=== PATIENT | male | born 1980 | race Caucasian/White ===

== ENCOUNTER 2018-10-08 08:26 | Inpatient (IN) | payer BC ==
[~2018-10-08] VITALS: Ht 175.3 cm; Wt 90.7 kg
[~2018-10-08 08:26] MED LIST: CLINDAMYCIN HC300 MG PO; FLA500 PO; LAC PO; MOTRIN800 MG PO; ZOC10 PO
[2018-10-08 08:35] VITALS: Ht 175.3 cm; Wt 90.7 kg
--- NOTE | 2018-10-08 08:42 | NUR ---
PT PLACED IN BED 15 FOR EVAL
--- NOTE | 2018-10-08 08:50 | NUR ---
RECEIVED PATIENT FROM TRIAGE, PATIENT AMBULATED TO ROOM 15. PATIENT C/O "BLOODY EUN FOR 2 DAYS; PAIN ON MY LEFT SIDE FOR 2 DAYS ALSO." PATIENT IS AAO X 4 (NAME, DATE, TIME AND CONDITION). EYES - PACO. HR - REGULAR. LUNGS CTA. BS PRESENT X 4 QUADRANTS. B/L UPPER AND LOWER EXT PULSES PALPABLE. WILL CONTINUE TO MONITOR//APR RN
--- NOTE | 2018-10-08 09:01 | NUR ---
DR CONNORS AT BEDSIDE FOR EVAL, APR RN AT BEDSIDE AUTOMATION QA ANALYST.//APR RN
[2018-10-08 09:32] LABS: BASOPHIL % 0.2 % (0-2); PLATELET COUNT 179 x10^3mcL (130-400); RED CELL DISTRIBUTION WIDTH 12.7 % (11.5-14.5)
--- NOTE | 2018-10-08 09:44 | NUR ---
PATIENT OUT OF UNIT FOR CT SCAN AT THIS TIME//APR RN
[2018-10-08 09:48] LABS: CARBON DIOXIDE 26.8 mmol/L (21-32); CHLORIDE SERUM 103 mmol/L (98-107); GFR1 > 60 mL/min; GLUCOSE SERUM 116 mg/dL (74-106); POTASSIUM SERUM 3.9 mmol/L (3.5-5.1); SODIUM SERUM 139 mmol/L (136-145)
[2018-10-08 09:52] LABS: ALBUMIN 3.7 g/dL (3.4-5.0); ALKALINE PHOSPHATASE 67 U/L (46-116); ALT/SGPT 50 U/L (16-63); AST/SGOT 26 U/L (15-37); BILIRUBIN TOTAL 0.8 mg/dL (0.20-1.00); LIPASE 191 IU/L (73-393); TOTAL PROTEIN, SERUM 7.8 g/dL (6.4-8.2)
--- NOTE | 2018-10-08 10:30 | NUR ---
PATIENT REQUESTED TO HAVE RIGHT AC HEPLOCK D/C STATES "IT HURTS WHEN I BEND MY ARM." D/C RIGHT AC HEPLOCK; HEPLOCK 22 GAUGE INITIATED ON RIGHT HAND.//JUN RN
--- NOTE | 2018-10-08 12:18 | NUR ---
PATIENT AMBULATED TO RESTROOM AT THIS TIME//APR RN
[2018-10-08 12:43] LABS: microscopic required? YES
[2018-10-08 12:44] LABS: urine erythrocyte NEGATIVE (NEGATIVE)
--- NOTE | 2018-10-08 12:51 | NUR ---
ADVISED PATIENT OF ROOM 220A. REPORT CALLED TO MARY CULLEN FOR ROOM 220A, ENDORSEMENT FOR EILEEN GIVEN. NO QUESTIONS AT THIS TIME. EMT TO TAKE PATIENT TO ROOM 220A.//JUN RN
--- NOTE | 2018-10-08 13:05 | NUR ---
PATIENT ARRIVED FROM ED VIA WHEEL CHAIR ACCOMPANIED BY TOOTH CUTTER CLUTCH. PATIENT AMBULATED TO BED IN ROOM 220A. A/OX4 AT THIS TIME. ORIENTED TO ROOM AND CALL LIGHT SYSTEM. CALL LIGHT WIHTIN REACH. MILD DISCOMFORT TO ABD. NO OTHER COMPLAINTS AT THIS TIME SPOKE WITH DR STAPLES TO GET ADMIT ORDERS FOR PATIENT.
[2018-10-08 13:35] VITALS: BP 112/76
--- NOTE | 2018-10-08 14:59 | NUR ---
ADMINSITERED MEDICATION PER MAR. PATIENT COMPLAINING OF 9/10 PAIN TO ABD. AND SLIGHTLY NAUSEATED. WILL REASSES PAIN. CALL LIGHT WITHIN REAC
--- NOTE | 2018-10-08 16:22 | NUR ---
PATIENT RESTING AT THIS TIME. LEFT SIDE KIMI. EYES CLOSED, BREATHING REGULAR. CALL LIGHT WITHIN REACH ON BED. WILL CONTINUE TO MONITOR
--- NOTE | 2018-10-08 17:32 | NUR ---
SPOKE WITH DR STAPLES. CLARIFIED CONSULT WITH DR CARREON FOR REASON OF RESPIRATORY FAILURE, DR STAPLES INSTRUCTED TO KEEP CONSULT ACITIVE. ALSO TO KEEP PATIENT SALINE LOCKED.
[2018-10-08 17:45] VITALS: BP 104/65
--- NOTE | 2018-10-08 18:03 | NUR ---
ADMINSITERED MEDICATIONS PER MAR. PATIENT HAD NOT COMPLAINTS AT THIS TIME. CALL LIGHT WITHIN REACH, WILL CONTINUE TO MONITOR
--- NOTE | 2018-10-08 18:57 | NUR ---
ADMINSITERED MEDICATION PER MAY. INSTRUCTED PATIENT TO USE HAT IN TOILET TO COLLECT STOOL AND USE CALL LIGHT FOR NURSE TO TAKE SAMPLE. PATIENT STABLE AT THIS TIME. WILL ENDORSE TO NIGHT NURSE
--- NOTE | 2018-10-08 19:30 | NUR ---
RECEIVED PT FROM DAY SHIFT RN. PT AAOX4. DENIES HEADACHE OR DIZZINESS. PT BREATHING EVEN AND UNLABORED ON RA, WITH NO SOB NOTED. MED SURG PT. PT DENIES CHEST PAIN OR PRESSURE. NO EDEMA NOTED. ABD SOFT/ROUND, ACTIVE BOWEL SOUNDS. PT DENIES ABD PAIN/N/V AT THIS TIME. PT AMBULATORY. IV RH, PATENT. NO SIGNS OF INFILTRATION NOTED. CALL BUTTON WITHIN REACH. SAFETY PRECAUTIONS IN PLACE. WILL CONTINUE TO MONITOR.
[2018-10-08 20:08] VITALS: BP 108/62
--- NOTE | 2018-10-08 22:57 | NUR ---
PT REPORTED ABD PAIN 11/27. MEDICATED PER EMAR. CALL BUTTON WITHIN REACH. SAFETY PRECAUTIONS IN PLACE. WILL CONTINUE TO MONITOR.
--- NOTE | 2018-10-09 00:44 | NUR ---
PT AWAKE. DENIES ANY PAIN. BREATHING EVEN AND UNLABORED. NO SIGNS OF DISTRESS. CALL BUTTON WITHINREACH. SAFETY PRECAUTIONS IN PLACE. WILL CONTINUE TO MONITOR.
--- NOTE | 2018-10-09 02:30 | NUR ---
ROUNDS MADE. PT RESTING, BREATHING EVEN AND UNLABORED WITH NO SIGNS OF DISTRESS NOTED. CALL BUTTON WITHIN REACH. SAFETY PRECAUTIONS IN PLACE. WILL CONTINUE TO MONITOR.
--- NOTE | 2018-10-09 05:08 | NUR ---
PT SLEPT ON AND OFF THROUGHOUT THE NIGHT WITH NO SIGNS OF DISTRESS NOTED. BREATHING EVEN AND UNLABORED ON RA. PT REPORTED HAVING ABD PAIN, MEDICATED PER EMAR WITH RELIEF. PT AMBULATORY WITH BRP. PT HAD BOWEL MOVEMENT PER PT IT IS MORE CLEAR. PT IV PATENT. NO SIGNS OF DISTRESS NOTED. CALL BUTTON WITHIN REACH. SAFETY PRECAUTIONS IN PLACE. WILL CONTINUE TO MONITOR AND ENDORSE CARE TO DAY SHIFT RN.
[2018-10-09 06:26] VITALS: BP 113/72
--- NOTE | 2018-10-09 06:56 | NUR ---
PER PT HE HAD ANOTHER BM LIGHT YELLOW IN COLOR.
[2018-10-09 07:15] VITALS: BP 97/51
--- NOTE | 2018-10-09 07:36 | NUR ---
NO SIGNS OF DISTRESS NOTED. ENDORSED CARE TO DAY SHIFT RN, ALL QUESTIONS ADDRESSED.
--- NOTE | 2018-10-09 07:48 | NUR ---
RECEIVED PATIENT FROM MARY CROWELL. PATIENT IN BED, NO COMPLAINTS OF PAIN. GI LAB CALLED AND READY FOR PATIENT FROM COLONOSCOPY. INFORMED PATIENT AND STATES HE IS READY, POST PROCEDURE TEACHING INITIATED AND PATIENT VERBALIZES UNDERSTANDING. PATIENT WITH GI LAB VIA GUERNEY DOWN FOR PROCEDURE.
--- NOTE | 2018-10-09 09:30 | NUR ---
PATIENT RETURNED FROM COLONOSCOPY, DR STAPLES IN TO SPEAK WITH PATIENT ABOUT PLAN OF CARE.
--- NOTE | 2018-10-09 09:51 | NUR ---
PATIENT RETURNED TO FLOOR, NO PAIN AT THIS TIME. DENIES N/V. DR STAPLES IN TO SEE PATIENT ABOUT PLAN OF CARE. PATIENT UNDERSTANDS THAT HE WILL BE SEEN BY INFECTIOUS DISEASE DOCTOR. FAMILY AT BEDSIDE. CALL LIGHT IN REACH.
[2018-10-09 09:59] VITALS: BP 108/72
--- NOTE | 2018-10-09 12:29 | NUR ---
PATIENT IN BED AT THIS TIME, NO COMPLAINTS OF PAIN. CT IN TO TAKE PATIENT FOR CHEST SCAN. WILL AWAIT PATIENT RETURN.
[2018-10-09 16:10] VITALS: BP 110/71
--- NOTE | 2018-10-09 16:30 | NUR ---
PATIENT IN BED WITH MILD COMPLAINTS OF L QUADRANT ABDOMINAL PAIN. PRN TYLENOL PO GIVEN, POSSIBLY DUE TO COLONOSCOPY TODAY. NEW ORDER FOR STOOL WBCs PLACED PER LAB. EXPLAINED TO PATIENT AND PATIENT AGREES. ALSO STOOL CULTURE STILL PENDING AND PATIENT ALSO AWARE. WILL CONTINUE TO MONITOR AND WAIT FOR BM. CALL LIGHT IN REACH AT THIS TIME.
--- NOTE | 2018-10-09 18:16 | NUR ---
PATIENT SEATED AT BEDSIDE EATING DINNER TRAY, TOLERATING REGULAR DIET. NO COMPLAINTS AT THIS TIME. PATIENT STILL AWARE THAT STOOL SPECIMEN IS NEEDED. WILL ENDORSE TO ONCOMING NURSE. CALL LIGHT IN REACH.
--- NOTE | 2018-10-09 19:05 | NUR ---
RECEIVED REPORT FROM GINO HERNANDEZ. ASSUMING ALL CARE
--- NOTE | 2018-10-09 19:25 | NUR ---
RECEIVED PT LAYING IN BED. PT IS A/OX4. SPEECH IS CLEAR. ABLE TO MAKE NEEDS KNOWN. DENIES CANSECO. GCS=15. EENT FREE OF DISCHARGE. ORAL MUCOSA PINK AND MOIST. NO JVD NOTED. TRACHEA MIDLINE. BREATHING IS E/U ON RA. LUNGS SOUND CLEAR BILAT. SYMMETRICAL CHEST EXPANSION NOTED. MED-SURG. S1/S2 HEART SOUNDS AUSCULTATED. DENIES AND CP/DIZZINESS. PALPABLE PULSES X4 EXTREMITIES. SKIN IS WARM AND DRY. NO EDEMA NOTED. LH IV IN PLACE, SALINE LOCKED. CAP REFILL < 3 SECS. PT IS AMBULATORY. NO JOINT SWELLING/DEFORMITY NOTED. ACTIVE FULL ROM X4 EXTREMITIES. PT IS ON REGULAR DIET. DENIES ANY N/V. ABD IS SOFT, FLAT, NONTENDER TO PALPATION. BOWEL SOUNDS ACTIVE X4 QUADRANTS. NO BM NOTED. PT VOIDS FREELY VIA URINAL. NO SCROTAL EDEMA NOTED. SKIN IS INTACT. PT ABLE TO REPOSITION SELF INDEPENDENTLY. PT IS CALM AND COOPERATIVE. BED IN LOW POSITION. CALL LIGHT IN REACH. WILL CONT TO MONITOR
[2018-10-09 20:40] VITALS: BP 107/68
--- NOTE | 2018-10-09 21:35 | NUR ---
PT IS AWAKE/ALERT. BREATHING IS E/U ON RA. NO S/S OF ACUTE DISTRESS NOTED. BED IN LOW POSITION. CALL LIGHT IN REACH. WILL CONT TO MONITOR
--- NOTE | 2018-10-09 23:00 | NUR ---
DR. MAHONEY AT BEDSIDE. UPDATED ON PT'S STATUS. PER DR. MAHONEY, DC ZOSYN, ORDER LEVAQUIN 500 MG IV DAILY, AND ORDER HIV TEST. WILL CARRY OUT ORDER
--- NOTE | 2018-10-10 02:00 | NUR ---
PT IS SLEEPING, EASILY AROUSABLE. BREATHING IS E/U ON RA. NO S/S OF ACUTE DISTRESS NOTED. WILL CONT TO MONITOR
--- NOTE | 2018-10-10 05:05 | NUR ---
PT IS AWAKE/ALERT. DENIES ANY PAIN. NO S/S OF ACUTE DISTRESS NOTED. BED IN LOW POSITION. CALL LIGHT IN REACH. WILL CONT TO MONITOR.
[2018-10-10 05:40] VITALS: BP 115/73
--- NOTE | 2018-10-10 07:10 | NUR ---
RECIEVED PT ASLEEP IN BED WITH NO S/S OF PAIN. DISTRESS, OR SOB. WOKE PT TO ASSESS, A/O X4 WITH NO CANSECO OR DIZZINESS. IV TO LEFT HAND INTACT AND PATENT WITH NO REDNESS OR INFLAMMATION. SAFETY PRECAUTIONS IN PLACE, CALL LIGHT WITHIN REACH, WILL MONITOR.
--- NOTE | 2018-10-10 07:10 | NUR ---
REPORT GIVEN TO TALIB HERNANDEZ. ALL QUESTIONS/CONCERNS ADDRESSED AT THIS TIME. ENDORSING ALL CARE
[2018-10-10 09:42] VITALS: BP 116/65
[2018-10-10 10:14] VITALS: BP 116/65
--- NOTE | 2018-10-10 11:12 | NUR ---
PT STABLE TO DISCHARGE TODAY. VS WNL. NO PAIN, DISTRESS, OR SOB NOTED. PT A/O X4, NO CANSECO OR DIZZINESS. ALL DISCHARGE INSTRUCTIONS, EDUCATION, PERSCRIPTIONS, AND CD OF STUDIES GIVEN TO PATIENT. PT VERBALIZES UNDERSTANDING. ALSO EDUCATED TO F/U WITH PCP AND DR JUAREZ, NUMBER GIVEN TO PT FOR DR JUAREZ. IV REMOVED WITH CATHETER INTACT, NO REDNESS OR INFLAMMATIONS NOTED AT SITE. ID BAND REMOVED FROM PT ARM. 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
== END 2018-10-10 11:34 | disposition home or self-care (01) | DRG 872 ==
LOC: ED 08:26 → MU 12:10
PROVIDERS: Emergency Medicine; Internal Medicine Gastroenterology; ADMIT Internal Medicine
PROC: 0DBP8ZX Excision of Rectum, Via Natural or Artificial Opening Endoscopic, Diagnostic (ICD-10-PCS; 2018-10-09)
PROC: 0DBB8ZX Excision of Ileum, Via Natural or Artificial Opening Endoscopic, Diagnostic (ICD-10-PCS; 2018-10-09)
PROC: 0DBH8ZX Excision of Cecum, Via Natural or Artificial Opening Endoscopic, Diagnostic (ICD-10-PCS; 2018-10-09)
PROC: 0DBK8ZX Excision of Ascending Colon, Via Natural or Artificial Opening Endoscopic, Diagnostic (ICD-10-PCS; principal; 2018-10-09 08:30)
DX: A41.9 Sepsis, unspecified organism (principal); K57.32 Diverticulitis of large intestine without perforation or abscess without bleeding; K52.9 Noninfective gastroenteritis and colitis, unspecified; R91.1 Solitary pulmonary nodule; K63.89 Other specified diseases of intestine; Z90.49 Acquired absence of other specified parts of digestive tract
CPT/HCPCS: 45378; 87046; 87046-59; G0378; J1200; J1610; J1885; J1956; J2250; J2270; J2310; J2405; J2543; J2550; J3010; J3490; J7030; J7040